=== PATIENT | female | born 1995 | race Caucasian/White ===

== ENCOUNTER 2017-12-24 12:01 | Emergency (ER) | payer SELFPAY ==
--- NOTE | 2017-12-24 12:37 | PDOC ---
Attending Attestation - [facility] HPI: 12/24/17 14:52 The patient is a 22 year old female with no past medical history who presents to the emergency department for evaluation of dizziness starting yesterday. The patient reports 3 episodes of dizziness, described as room spinning dizziness. The patient reports a witnessed syncopal episode lasting 2 minutes yesterday while cooking, but denies head trauma. She reports subsequently vomiting the food she had eaten yesterday. Today, the patient reports a symptom of nausea without vomiting. She reports waking up today feeling dizzy which prompted her to visit to the emergency department for further evaluation. LMP 11/30/17 The patient denies chest pain, shortness of breath, headache, dizziness, fever, chills, constipation, and diarrhea. Denies urinary frequency/urgency, dysuria, and hematuria. Allergies: NKDA Social History: No reported alcohol, cigarette, or drug use. - Physicial Exam PE: Vitals: Triage Vital signs reviewed General Appearance: no acute distress, well nourished well developed, Head: Atraumatic, normocephalic Eyes: Pupils equal reactive round, extraocular movement intact Neck: Supple Chest Wall: Nontender Cardiac: Regular rate and rhythm, no murmurs, no rubs, no gallops, Lungs: Clear to auscultation bilateral, good air movement bilaterally, Abdomen: Soft, nondistended, nontender to palpation Extremities: Full range of motion to all extremities, no cyanosis, clubbing, or edema Skin: Warm and dry, no rashes or lesions, no petechiae Psych: normal mood, normal affect - Medical Decision Making The patient is a 22 year old female with no past medical history who presents to the emergency department for evaluation of dizziness starting yesterday. Plan: EKG Labs UA <LeslieMendezwillian - Last Filed: 12/24/17 14:52> - Resident Resident Name: Christina Crawley - ED Attending Attestation I have performed the following: I have examined & evaluated the patient, The case was reviewed & discussed with the resident, I agree w/resident's findings & plan, Exceptions are as noted - Medical Decision Making Reproducible positional vertigo. Nonfocal neurologic examination. Status post IV fluids meclizine patient feels much better. We'll discharge which short course meclizine and neurology follow-up. Findings, the need for follow-up and strict return instructions discussed patient. <Geraldo Hewitt - Last Filed: 12/24/17 15:09> Heart Score/ECG Review - ECG Impressions Comment:: 12/24/17 15:09 Sinus rhythm 56 beats for minute. No ST elevations or T-wave inversions. No evidence of WPW, Brugada, prolonged QT. <Geraldo Hewitt - Last Filed: 12/24/17 15:09> Attestations - Attestations Documentation prepared by Edgar Nelson, acting as medical dermatologist for Geraldo Hewitt MD. <Edgar Nelson - Last Filed: 12/24/17 14:52>
[2017-12-24] MEDS ORDERED: SODIUM CHLORIDE 0.9% 1000 ML INFUS.BAG IV ONE (12:38)
--- NOTE | 2017-12-24 12:56 | PDOC ---
History of Present Illness - General Chief Complaint: Lightheaded Stated Complaint: DIZZINESS Time Seen by Provider: 12/24/17 12:26 - History of Present Illness Initial Comments: 12/24/17 12:49 22 year old with no signifcant history who presents feelings of dizziness, as if the room is spinning, that started this AM. She has had two prior episodes of these symptoms, most recently 1 day ago, the patient had an episode of dizziness that occurred after standing for 10min while cooking, she then lost consciousness and fell to the ground for approx 2min as witnessed by her sister. Sister and patient deny shaking or seizure activity, deny head trauma at that time. Patient admits to 1 episode of NBNB vomiting that occurred 1 hour after passing out. She notes that this happened for the first time 2 months ago while she was sitting on the couch. At bedside patient feels dizzy and admits to a mild headache, but denies nausea. Patient denies changes in appetite, fever , abdominal pain, burning or dysuria, diarrhea or constipation. PMHX: none PSHX: none Meds: none Allergies: none Tob: none Etoh: none Rec drugs: none 12/24/17 13:02 Past History - Past Medical History Allergies/Adverse Reactions: Allergies Allergy/AdvReac Type Severity Reaction Status Date / Time No Known Allergies Allergy Verified 12/24/17 12:11 Home Medications: Ambulatory Orders Meclizine HCl 25 mg PO PRN #14 tab.chew 12/24/17 COPD: No Other medical history: LMP 11/30/17 - Suicide/Smoking/Psychosocial Hx Smoking History: Never smoked Hx Alcohol Use: No Drug/Substance Use Hx: No *Physical Exam - Vital Signs Last Vital Signs Temp Pulse Resp BP Pulse Ox 98.2 F 71 18 115/60 99 12/24/17 12:11 12/24/17 12:11 12/24/17 12:11 12/24/17 12:11 12/24/17 12:11 - Physical Exam Comments: 12/24/17 12:59 GENERAL: Awake, alert, and fully oriented, in no acute distress HEAD: No signs of trauma, normocephalic, atraumatic EYES: PERRLA, EOMI, sclera anicteric, conjunctiva clear ENT: Auricles normal inspection, hearing grossly normal, nares patent, oropharynx clear without exudates. Moist mucosa, L sided uvula deviation NECK: Normal ROM, supple, no lymphadenopathy or masses LUNGS: No distress, speaks full sentences, clear to auscultation bilaterally HEART: Regular rate and rhythm, normal S1 and S2, no murmurs, rubs or gallops, peripheral pulses normal and equal bilaterally. ABDOMEN: Soft, nontender, normoactive bowel sounds. No guarding, no rebound. No masses EXTREMITIES : Normal inspection, Normal range of motion, no edema. No clubbing or cyanosis. NEUROLOGICAL: Cranial nerves II through XII grossly intact. Normal speech, normal gait, no focal sensorimotor deficits SKIN: Warm, Dry, normal turgor, no rashes or lesions noted ED Treatment Course - LABORATORY CBC & Chemistry Diagram: 12/24/17 13:00 12/24/17 13:00 Medical Decision Making - Medical Decision Making 12/24/17 13:02 22 year old with no signifcant history who presents feelings of dizziness, as if the room is spinning, that started this AM. She has had two prior episodes of these symptoms, most recently 1 day ago. Patient's symptoms and history are most consistent with BPPV vs meniere's disease vs labyrinthitis. Patient expressed dizziness on Shanda Hallpike maneuver and relief with meclizine, making BPPV more likely. Patient denies symptoms of hearing loss and tinnitus and does not exhibit TM erythema or bulging making labyrinthitis and meniere's disease less likely The patient stable on reassessment. Advised to follow up with PCP and given strict return precautions and home short course of meclizine. Patient expresses understanding and is ready for discharge. *DC/Admit/Observation/Transfer Diagnosis at time of Disposition: BPPV (benign paroxysmal positional vertigo) - Discharge Dispostion Disposition: HOME Condition at time of disposition: Stable Decision to Admit order: No - Prescriptions Prescriptions: Meclizine HCl 25 mg PO PRN #14 tab.chew - Referrals Referrals: [facility] [place] [Provider Group] - Patient Instructions Printed Discharge Instructions: Benign Paroxysmal Positional Vertigo Additional Instructions: You were seen in the ED for complaints of dizziness. You were evaluated with labwork that was found to be unremarkable. There does not appear to be an immediate need for hospitalization. You are given a referral for a primary care. You are advised to follow up within 1 week. Return to the ED immediately if you have worsening symptoms, nausea, vomiting, loss of consciousness, fever. - Post Discharge Activity
[2017-12-24 13:06] LABS: BASO % 0.5 % (0-2.0); EOS % 1.7 % (0-4.5); HEMATOCRIT 37.1 % (32.4-45.2); HEMOGLOBIN 12.5 GM/dL (10.7-15.3); LYMPH % 28.9 % (8-40); MCH 31.3 pg (25.7-33.7); MCHC 33.7 g/dl (32.0-36.0); MEAN CELL VOLUME 92.8 fl (80-96); MEAN PLT VOLUME 8.2 fl (7.5-11.1); MONO % 6.2 % (3.8-10.2); NEUT % 62.7 % (42.8-82.8); PLATELET COUNT 254 K/MM3 (134-434); RDW 13.4 % (11.6-15.6); WHITE BLOOD COUNT 6.4 K/mm3 (4.0-10.0)
[2017-12-24 13:34] LABS: ALBUMIN 3.8 g/dl (3.4-5.0); ANION GAP 5 (8-16); BILIRUBIN,TOTAL 0.5 mg/dL (0.2-1.0); BLOOD UREA NITROGEN 10 mg/dL (7-18); CALCIUM 8.5 mg/dL (8.5-10.1); CHLORIDE 105 mmol/L (98-107); CO2 29 mmol/L (21-32); CREATININE 0.8 mg/dL (0.55-1.02); GLUCOSE,RANDOM 101 mg/dL (74-106); POTASSIUM 3.9 mmol/L (3.5-5.1); SGOT/AST 15 U/L (15-37); SGPT/ALT 15 U/L (12-78); SODIUM 139 mmol/L (136-145); TOT PROT 7.2 g/dl (6.4-8.2)
[2017-12-24 13:37] LABS: ALK PHOS 88 U/L (45-117)
[2017-12-24] MEDS ORDERED: MECLIZINE HCL 25 MG TABLET (FP) PO ONE (13:49)
[2017-12-24] MEDS ORDERED: MECLIZINE HCL 25 MG TABLET (FP) ONE (14:10)
[2017-12-24 14:43] VITALS: TEMP 98.8
[2017-12-24 15:55] VITALS: BP 120/90; PULSE 59
--- NOTE | 2017-12-25 09:08 | EKG ---
Test Reason : Blood Pressure : / mmHG Vent. Rate : 056 BPM Atrial Rate : 056 BPM P-R Int : 120 ms QRS Dur : 080 ms QT Int : 402 ms P-R-T Axes : 066 063 048 degrees QTc Int : 387 ms SINUS BRADYCARDIA OTHERWISE NORMAL ECG NO PREVIOUS ECGS AVAILABLE Confirmed by JONATHON OCONNELL, EUSEBIO ([id number]) on 12/25/2017 9:07:59 AM Referred By: Confirmed By:EUSEBIO HOLT MD
== END 2017-12-24 15:55 | disposition home or self-care (01) ==
LOC: JER 12:01
PROC: 3E0337Z Introduction of Electrolytic and Water Balance Substance into Peripheral Vein, Percutaneous Approach (ICD-10-PCS; principal; 2017-12-24)
DX: H81.10 Benign paroxysmal vertigo, unspecified ear (principal)
CPT/HCPCS: 36415; 80053; 84484; 84703; 85025; 93005; 93010; 99283-25; J7030

== ENCOUNTER 2018-12-06 15:19 | Emergency (ER) | payer SELFPAY ==
--- NOTE | 2018-12-06 15:34 | PDOC ---
Rapid Medical Evaluation Time Seen by Provider: 12/06/18 15:32 Medical Evaluation: Allergies Allergy/AdvReac Type Severity Reaction Status Date / Time No Known Allergies Allergy Verified 12/24/17 12:11 12/06/18 15:34 I have performed a brief in-person evaluation of this patient. The patient presents with a chief complaint of:Epigastric pain today. Similar to in the past. +diarrhea. No n/v/f. Denies any pmhx Pertinent physical exam findings:unremarkable I have ordered the following:nothing The patient will proceed to the ED for further evaluation. Discharge Disposition - Diagnosis Epigastric pain - Referrals - Patient Instructions - Post Discharge Activity
[2018-12-06 15:37] VITALS: BP 95/65; PULSE 81; BMI 21.2
[2018-12-06] MEDS ORDERED: MAG HYDROX/AL HYDROX/SIMETH 30 ML UNIT-DOSE CUP PO ONE (16:29)
[2018-12-06] MEDS ORDERED: LIDOCAINE VISCOUS 2% ORAL/TOP 20 ML UNIT-DOSE CUP PO ONE (16:29)
--- NOTE | 2018-12-06 16:29 | PDOC ---
History of Present Illness - General Chief Complaint: Pain Stated Complaint: ABDOMINAL PAIN Time Seen by Provider: 12/06/18 15:32 History Source: Patient Exam Limitations: No Limitations - History of Present Illness Travel History: No Initial Comments: 12/06/18 16:25 HISTORY OF PRESENT ILLNESS: This a 23-year-old woman denies medical history presents emergency department for evaluation of upper abdominal pain and diarrhea starting today. Patient is unable to perform a 24-hour diet recall. Patient denies feeling in nausea and has not vomited. Patient is able to drink liquids without difficulty. She denies fevers, chills, chest pain, shortness of breath, dysuria, hematuria, vaginal bleeding or discharge. Patient does not take any medications and denies any recent travel or sick contacts. Pain is described as a cramping ache that moves throughout her abdomen. Unable to rate- states "bad." PAST MEDICAL HISTORY: Denies past medical history SURGICAL HISTORY: Denies ALLERGIES: No known drug allergies REVIEW OF SYSTEMS General/Constitutional: Denies fever or chills. Denies weakness, weight change. HEENT: Denies change in vision. Denies ear pain or discharge. Denies sore throat. Cardiovascular: Denies chest pain or shortness of breath. Respiratory: Denies cough, wheezing, or hemoptysis. Gastrointestinal: see HPI Genitourinary: Denies dysuria, frequency, or change in urination. Musculoskeletal: Denies joint or muscle swelling or pain. Denies neck or back pain. Skin and breasts: Denies rash or easy bruising. Neurologic: Denies headache, vertigo, loss of consciousness, or loss of sensation. Psychiatric: Denies depression or anxiety. Endocrine: Denies increased thirst. Denies abnormal weight change. Hematologic/Lymphatic: Denies anemia, easy bleeding, or history of blood clots. Allergic/Immunologic: Denies hives or skin allergy. Denies latex allergy. PHYSICAL EXAM General Appearance: Well-appearing, appropriately dressed. No apparent distress , no intoxication. Respiratory/Chest: Lungs CTAB. No shortness of breath, chest tenderness, respiratory distress, accessory muscle use. No crackles, rales, rhonchi, stridor , wheezing, dullness Cardiovascular: RRR. S1, S2. No JVD, murmur, bradycardia, tachycardia. Vascular Pulses: Dorsalis-Pedis (R): 2+, Dorsalis-Pedis (L): 2+ Gastrointestinal/Abdominal: Normal bowel sounds. Abdomen soft, non-distended. No tenderness or rebound tenderness. No organomegaly, pulsatile mass, guarding, hernia, hepatomegaly, splenomegaly. Integumentary: Appropriate color, dry, warm. No cyanosis, erythema, jaundice or rash Neurologic: liquor commissioner II-XII intact. Fully oriented, alert. Appropriate mood/affect. Motor strength 5/5. No appreciable EOM palsy, facial droop or sensory deficit. Past History - Past Medical History Allergies/Adverse Reactions: Allergies Allergy/AdvReac Type Severity Reaction Status Date / Time No Known Allergies Allergy Verified 12/06/18 15:32 Home Medications: Ambulatory Orders Meclizine HCl 25 mg PO PRN #14 tab.chew 12/24/17 COPD: No - Immunization History Immunization Up to Date: Yes - Suicide/Smoking/Psychosocial Hx Smoking History: Never smoked Information on smoking cessation initiated: No Hx Alcohol Use: No Drug/Substance Use Hx: No *Physical Exam - Vital Signs Last Vital Signs Temp Pulse Resp BP Pulse Ox 98.4 F 81 16 95/65 99 12/06/18 15:33 12/06/18 15:33 12/06/18 15:33 12/06/18 15:33 12/06/18 15:33 ED Treatment Course - LABORATORY CBC & Chemistry Diagram: 12/06/18 17:00 12/06/18 17:00 Medical Decision Making - Medical Decision Making 12/06/18 16:27 A/P: 23-year-old woman with abdominal pain and diarrhea for 1 day Most likely viral gastroenteritis. Less likely pancreatitis, GERD, cholecystitis , gallstones, choledocholithiasis Benign abdominal exam Maalox 30 mL orally now Viscous lidocaine 20 mL orally now Labs including urinalysis, urine culture and lipase Reassess Low threshold for imaging for lab abnormalities. 12/06/18 18:21 CBC and chemistries are unremarkable. Urinalysis is notable for 2+ protein, trace leukoesterase and 22 WBCs. As patient has diarrhea this is questionable contaminant. We'll defer treatment on this time pending results of urine culture. I discussed the physical exam findings, ancillary test results and final diagnoses with the patient. I answered all of the patient's questions. The patient was satisfied with the care received and felt comfortable with the discharge plan and treatment plan. The patient will call their primary care physician within 24 hours to arrange follow-up and will return to the Emergency Department with any new, persistent or worsening symptoms. *DC/Admit/Observation/Transfer Diagnosis at time of Disposition: Gastroenteritis - Discharge Dispostion Disposition: HOME Condition at time of disposition: Improved Decision to Admit order: No - Referrals - Patient Instructions Additional Instructions: Rest, drink lots of fluids: Teas, water, soups Kathrine ashley, carbonated beverages for the bubbles May try peppermint teas Avoid heavy , spicy or fatty foods until symptoms have resolved Avoid contact with others until fevers and symptoms resolved Lots of handwashing and good hygiene Continue [id number] medications for symptomatic relief Tylenol or Motrin for fever and pain Followup with private physician in one to 2 days as needed Return to emergency department for worsened symptoms, fevers, dehydration - Post Discharge Activity Forms/Work/School Notes: Back to Work
[2018-12-06 16:42] VITALS: TEMP 98.4
[2018-12-06] MEDS ORDERED: MAG HYDROX/AL HYDROX/SIMETH 30 ML UNIT-DOSE CUP ONE (16:56)
[2018-12-06] MEDS ORDERED: LIDOCAINE VISCOUS 2% ORAL/TOP 20 ML UNIT-DOSE CUP ONE (16:56)
[2018-12-06 17:21] LABS: BASO % 0.1 % (0-2.0); HEMATOCRIT 39.1 % (32.4-45.2); HEMOGLOBIN 13.4 GM/dL (10.7-15.3); MCH 31.6 pg (25.7-33.7); MCHC 34.3 g/dl (32.0-36.0); MEAN CELL VOLUME 92.2 fl (80-96); MEAN PLT VOLUME 8.6 fl (7.5-11.1); MONO % 6.2 % (3.8-10.2); NEUT % 60.7 % (42.8-82.8); PLATELET COUNT 266 K/MM3 (134-434); RBC 4.24 M/mm3 (3.60-5.2); RDW 13.5 % (11.6-15.6)
[2018-12-06 17:30] LABS: EPI CELLS 1.6 /HPF (0-5/HPF); HYALINE CASTS 9 /lpf (0-8); URINE APPEARANCE CLEAR; URINE BACTERIA 254.2 /hpf (NEGATIVE); URINE BILIRUBIN NEGATIVE (NEGATIVE); URINE COLOR YELLOW; URINE GLUCOSE (UA) NEGATIVE (NEGATIVE); URINE KETONE NEGATIVE (NEGATIVE); URINE LEUK ESTERASE TRACE (NEGATIVE); URINE NITRITE NEGATIVE (NEGATIVE); URINE PROTEIN 2+ (NEGATIVE); URINE RBC 1 /hpf (0-4); URINE UROBILINOGEN 0.2 mg/dL (0.2-1.0); URINE WBC 22 /hpf (0-5)
[2018-12-06 17:51] LABS: ALBUMIN 4.1 g/dl (3.4-5.0); BILIRUBIN,TOTAL 0.5 mg/dL (0.2-1); BLOOD UREA NITROGEN 7.9 mg/dL (7-18); CALCIUM 8.7 mg/dL (8.5-10.1); CREATININE 0.7 mg/dL (0.55-1.3); POTASSIUM 3.8 mmol/L (3.5-5.1); TOT PROT 7.4 g/dl (6.4-8.2)
== END 2018-12-06 18:30 | disposition home or self-care (01) ==
LOC: JERFT 15:19 → JER 15:19 → JERFT 18:30
DX: K52.9 Noninfective gastroenteritis and colitis, unspecified (principal)
CPT/HCPCS: 36415; 80053; 81003; 83690; 84703; 85025; 87086; 87186; 99282-25